=== PATIENT | male | born 1985 ===

== ENCOUNTER 2022-07-29 10:43 | Emergency (ER) | payer SELFPAY ==
[2022-07-29] MEDS ORDERED: FAMOTIDINE 20 MG/2 ML INJ IV ONE (11:34)
[2022-07-29] MEDS ORDERED: dexAMETHasone 20 MG/5 ML VIAL IV ONE (11:40)
[2022-07-29] MEDS ORDERED: SODIUM CHLORIDE 0.9% 1000 ML 1,000 ML IV ONE (11:40)
[2022-07-29] MEDS ORDERED: diphenhydrAMINE 50 MG/ML VIAL IV ONE (11:40)
--- NOTE | 2022-07-29 11:46 | Emergency Department Report ---
HPI - General Chief Complaint: Allergic Reaction PUI?: No Time Seen by Provider: 07/29/22 11:34 - HPI HPI: [employer] [id number] 36-year-old Syriac-speaking male with no significant past medical history presents for evaluation of allergic reaction. Patient states he was at home resting when he was stung by multiple wasp in his home. He states he has approximately 10 stings and has developed diffuse wheals and itching on his skin. He also reports that he feels tightness in his throat and difficulty swallowing his saliva. He denies any headaches nausea vomiting vision changes tingling or numbness. He states he mainly took a shower afterwards to soothe the itching but it did not help. He states he has been stung by wasp before in the past but has never had difficulty breathing or shortness of breath or feelings as though he could not swallow his saliva. He did not take any medication prior to arrival. Pain currently 0/10. ED Past Medical Hx - Past Medical History Previous Medical History?: No - Surgical History Past Surgical History?: No - Medications Home Medications: Home Medications Medication Instructions Recorded Confirmed Last Taken Type EPINEPHrine [Epipen] 0.3 mg IJ ONCE 1 Days #1 07/29/22 Unknown Rx Famotidine [Pepcid] 20 mg PO BID 7 Days #14 tablet 07/29/22 Unknown Rx methylPREDNISolone [Medrol 4MG 4 mg PO DAILY 6 Days #21 07/29/22 Unknown Rx DOSEPAK (21 tabs)] ED Review of Systems ROS: Stated complaint: WASP STING Other details as noted in HPI Comment: All other systems reviewed and negative Physical Exam - Physical Exam General: Gen: pt is well appearing, no acute distress, speaking in full sentences, no drooling no stridor no respiratory distress, breathing unlabored, nontoxic- appearing, patient is tolerating his oral secretions without difficulty, patient appears comfortable, lying back in his stretcher, no tripoding witnessed HEENT: Normocephalic atraumatic pupils equally round and reactive to light extraocular muscles intact sclera anicteric, uvula midline without edema, no angioedema, no macroglossia, no Jacob's angina, tonsils symmetric and n onenlarged, dentition grossly unremarkable, no dental abscesses, no visible foreign bodies in oropharynx Neck: Full range of motion, no midline spinal tenderness palpation, no JVD, no carotid bruits, no nuchal rigidity CVS: S1-S2 regular rate and rhythm with no gallops rubs or murmurs, chest wall nontender Pulmonary: Clear to auscultation bilaterally, no wheezes rales or rhonchi Abdomen: Soft nondistended nontender no guarding or rebound tenderness, no palpable deformities or step-offs, normal active bowel sounds, no hepatosplenomegaly, no pulsatile masses : Deferred Extremities: No cyanosis no clubbing no edema, intact distal peripheral pulses, Integumentary: Patient skin covered in diffuse urticaria on his arms legs abdomen back and trunk, no secondary signs of infection visible, Neuro: Patient is awake alert and oriented to person place time situation, mentating well, cranial nerves II through XII intact, no focal neurodeficits, sensation grossly tact Psych: Calm cooperative, mood affect normal ED Course - Reevaluation(s) Reevaluation #1: 07/29/22 13:13 Patient reassessed. He is comfortable and well-appearing. He is asleep but easily arousable. Vitals are stable. Oropharynx reexamined by me. Tonsils symmetric and nonenlarged, uvula midline without edema, no angioedema no macroglossia no Jacob's angina. Patient is tolerating his oral secretions without difficulty and denies any active throat tightness shortness of breath or difficulty breathing ED Medical Decision Making - Medical Decision Making This patient is a 36-year-old male with no known past medical history who presents for evaluation of allergic reaction manifested as shortness of breath difficulty breathing throat tightness and itching, status post being witnessed by wasp. Vital signs stable. Patient's airway remained patent and intact. His vitals are stable. He is tolerating his oral secretions without difficulty or reproduction of worsening of his symptoms. He was reassessed by me multiple times at his bedside and his airway remained patent and intact. He no signs or symptoms of acute respiratory, cardiovascular, or systemic collapse in the setting of being stung by wasp. He was given Benadryl, Decadron, famotidine and reported complete resolution of his symptoms. His vitals normalized. Manual heart rate checked by me and it was 86 bpm prior to discharge. No further work emergent work-up warranted at this time. Patient deemed stable for discharge to home. Prior to discharge he was given strict verbal and written return precautions. Patient verbalized understanding current plan of care. Critical care attestation.: If time is entered above; I have spent that time in minutes in the direct care of this critically ill patient, excluding procedure time. ED Disposition Clinical Impression: Allergic reaction to insect sting Disposition: HOME / SELF CARE / HOMELESS Is pt being admited?: No Does the pt Need Aspirin: No Condition: Stable Additional Instructions: You are being placed on multiple additional medications which you are to take over the next 6 to 7 days. Take over the counter benadryl 25mg by mouth, every 6 hours, as needed for itching. Please also consider purchasing calamine lotion from your local pharmacy, to help with itching. Observe your symptoms very carefully. If you develop any new onset of difficulty breathing or shortness of breath, inability to swallow your saliva, or feelings as though your throat is tight or closing, please use your epinephrine pen prescription and come back to the nearest emergency department for emergent evaluation. Prescriptions: EPINEPHrine [Epipen] 0.3 mg IJ ONCE 1 Days #1 methylPREDNISolone [Medrol 4MG DOSEPAK (21 tabs)] 4 mg PO DAILY 6 Days #21 Famotidine [Pepcid] 20 mg PO BID 7 Days #14 tablet
[2022-07-29 13:05] VITALS: BP 117/90
== END 2022-07-29 15:12 | disposition home or self-care (01) ==
LOC: ED 10:43
DX: T63.441A Toxic effect of venom of bees, accidental (unintentional), initial encounter (principal); Y92.89 Other specified places as the place of occurrence of the external cause
CPT/HCPCS: 96361; 96374; 96375; 99282; J1100; J1200; J3490; J7030